=== PATIENT | male | born 1980 | race Caucasian/White ===

== ENCOUNTER 2016-11-01 15:18 | Emergency (ER) | payer MEDICAID ==
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
== END 2016-11-01 16:41 | disposition home or self-care (01) ==
LOC: ER 15:18
DX: T25.232A Burn of second degree of left toe(s) (nail), initial encounter (principal); X11.8XXA Contact with other hot tap-water, initial encounter; Y93.89 Activity, other specified; Y92.89 Other specified places as the place of occurrence of the external cause; Y99.8 Other external cause status
CPT/HCPCS: Z7502